=== PATIENT | female | born 1950 | race Caucasian/White ===

== ENCOUNTER 2017-11-26 08:18 | Emergency (ER) | payer MEDICARE, BC ==
--- NOTE | 2017-11-26 08:55 | EDM.PDOC ---
ED HPI GENERAL MEDICAL PROBLEM - General Chief Complaint: Lower Extremity Injury/Pain Stated Complaint: L LEG PAIN Time Seen by Provider: 11/26/17 08:45 Source of Information: Reports: Patient, Family History Limitations: Reports: No Limitations - History of Present Illness INITIAL COMMENTS - FREE TEXT/NARRATIVE: 67-year-old female who walks a lot, has been having some difficulty with pain in her left knee for the past 3 weeks and today while walking she felt a pop behind her knee and cannot even straighten her leg or bear weight now. There is no significant swelling or bruising, there was no direct trauma. She has no peripheral edema but has some fairly intense pain in the proximal calf into the popliteal area area of the left knee. No symptoms of the right knee. Otherwise healthy. Onset: Sudden Location: Reports: Lower Extremity, Left Severity: Moderate Associated Symptoms: Reports: No Other Symptoms Right Leg Pain Score (Numeric/FACES): 9 - Related Data Allergies Allergy/AdvReac Type Severity Reaction Status Date / Time No Known Allergies Allergy Verified 11/26/17 08:52 Home Meds: Home Meds Aspirin [Halfprin] 81 mg PO DAILY 11/26/17 [History] Review of Systems - Review of Systems Review Of Systems: See Below Constitutional: Denies: Fever Respiratory: Reports: No Symptoms Cardiovascular: Reports: No Symptoms GI/Abdominal: Reports: No Symptoms Skin: Reports: No Symptoms. Denies: Bruising Neurological: Reports: No Symptoms. Denies: Paresthesia ED EXAM, GENERAL - Physical Exam Exam: See Below Exam Limited By: No Limitations General Appearance: Alert, No Apparent Distress Respiratory/Chest: No Respiratory Distress Extremities: Other (Exam is otherwise limited to the lower extremities. The knees looks symmetric, the left knee has no effusion or asymmetry. She has slight discomfort with lateral and medial stressing of the knee but most of her tenderness is with palpation of the popliteal area and proximal gastrocnemius muscle. There is no swelling or bruising.) Course - Vital Signs Last Recorded V/S: Last Vital Signs Temp 97.0 F 11/26/17 08:57 Pulse 77 11/26/17 08:57 Resp 16 11/26/17 08:57 BP 152/82 H 11/26/17 08:57 Pulse Ox 97 11/26/17 08:57 - Orders/Labs/Meds Orders: Active Orders 24 hr Category Date Time Status Knee 3V Lt [CR] Stat Exams 11/26/17 08:51 Taken DME for Discharge [COMM] Stat Oth 11/26/17 09:13 Ordered - Re-Assessments/Exams Free Text/Narrative Re-Assessment/Exam: 11/26/17 08:55 An x-ray of the left knee was obtained. 11/26/17 09:12 Left knee x-ray shows no acute findings. The patient is given a wrap her knee for support and she was given crutches, I gave her information on our orthopedic department for follow-up if needed. She may have had a Carcamo's cyst that ruptured or leaked, and may improve fairly rapidly. I recommended a regular dose of anti-inflammatory. Departure - Departure Time of Disposition: 09:34 Disposition: Home, Self-Care 01 Condition: Good Clinical Impression: Posterior left knee pain - Discharge Information Instructions: Knee Pain, Adult Referrals: PCP,None [Primary Care Provider] - Forms: ED Department Discharge Care Plan Goals: Wrap knee and use crutches along with an anti-inflammatory such as ibuprofen or naproxen for the next several days. Increase activity as tolerated and consider rechecking with orthopedics in the next 1-2 weeks, sooner if not improving satisfactorily. - My Orders Last 24 Hours: My Active Orders 11/26/17 08:51 Knee 3V Lt [CR] Stat 11/26/17 09:13 DME for Discharge [COMM] Stat - Assessment/Plan Last 24 Hours: My Active Orders 11/26/17 08:51 Knee 3V Lt [CR] Stat 11/26/17 09:13 DME for Discharge [COMM] Stat
--- NOTE | 2017-11-28 10:00 | CR ---
Small effusion or synovitis. No evidence for fracture.
== END 2017-11-26 09:34 | disposition home or self-care (01) ==
LOC: JP.ED 08:18
DX: M25.562 Pain in left knee (principal); Z79.82 Long term (current) use of aspirin
CPT/HCPCS: 73562-26-LT; 73562-LT; 99284